=== PATIENT | male | born 1950 | race Caucasian/White ===

== ENCOUNTER 2016-10-14 11:16 | Day surgery (SDC) | payer MEDICAID ==
[2016-04-13 10:54] VITALS: BMI 27.3
[2016-10-14] MEDS: Lactated Ringer's 1,000 ML IV ONE (13:05)
[2016-10-14] MEDS ORDERED: Sodium Chloride 0.9% 1,000 ML IV ONE ×2 (13:05→13:31)
[2016-10-14] MEDS ORDERED: Ciprofloxacin 400mg/200ml D5W 400 MG/200 ML BAG IVPB ONE (13:07)
[2016-10-14] MEDS ORDERED: Midazolam 2 MG/2 ML VIAL ONE ×2 (13:12→13:13)
[2016-10-14] MEDS ORDERED: Propofol 10 mg/ml Inj (20 ML) ONE (13:12)
[2016-10-14] MEDS ORDERED: HYDROmorphone 0.5 mg/0.5 ml ISec IVP PRN (13:27)
[2016-10-14 15:12] VITALS: BP 140/69; PULSE 65; RESP 16; TEMP 97.5; O2SAT 97
--- NOTE | 2016-10-14 18:29 | OP ---
PROCEDURE DATE: 10/14/2016 PREOPERATIVE DIAGNOSES: Frequency and nocturia. POSTOPERATIVE DIAGNOSES: Large prostate causing obstruction with trabeculation. PROCEDURE: Cystoscopy and dilatation. DESCRIPTION OF THE PROCEDURE: While the patient in lithotomy position, genitalia prepped and draped in sterile fashion. The patient given Cipro 400 IV piggyback. The patient identified and anesthesia started. Cystoscopy revealed urethra normal, bulbous urethra mild stricture, this is dilated. The prostate itself showed inflammation on the right side and floor elevated and the prostate itself caus ing obstruction of the prostatic urethra. The bladder itself trabeculated with a small ____ all arou nd the posterior and the lateral wall. After inspecting the rest of the bladder, the prostate again inspected, revealed elevation of the bladder neck and the tissue causing obstruction and that is the reason for his frequency. After removing the scope, urethra dilated and patient transferred to the r ecovery room in stable condition. Neena Hood MD cc: 43 TT: 10/14/2016 18:28:10 sn
== END 2016-10-14 15:13 | disposition home or self-care (01) ==
LOC: C.SDS 11:16
PROVIDERS: ATTEND Specialist
DX: N40.1 Benign prostatic hyperplasia with lower urinary tract symptoms (principal); R35.0 Frequency of micturition; N13.8 Other obstructive and reflux uropathy; N35.8 Other urethral stricture
CPT/HCPCS: 52281; J0744; J7040

== ENCOUNTER 2016-12-23 17:03 | Emergency (ER) | payer MEDICARE, MEDICAID ==
[2016-12-23 17:03] VITALS: BMI 27.3
--- NOTE | 2016-12-23 17:56 | C.PDOC ---
History Of Present Illness 66 Y/O MALE C/O HEADACHE, VOMITING X 2 DAYS. PATIENT REPORTS HE GETS MIGRAINES EVERY WEEK AND THAT CURRENT HEADACHE IS WORSE THAN USUAL. NO RELIEF AFTER TYLENOL AT 0900 TODAY. DENIES FEVER, CHILLS, VISUAL CHANGES, OR OTHER ASSOCIATED SYMPTOMS. Time Seen by Provider: 12/23/16 17:46 Chief Complaint (Nursing): Headache History Per: Patient History/Exam Limitations: no limitations Onset/Duration Of Symptoms: Days Current Symptoms Are (Timing): Still Present Preceeding Symptoms: denies: Visual Disturbances Associated Symptoms: Nausea, Vomiting. denies: Blurred Vision, Extremity Weakness Recent travel outside of the [place]: No Past Medical History Reviewed: Historical Data, Nursing Documentation, Vital Signs Vital Signs: Last Vital Signs Temp 98.1 F 12/23/16 17:15 Pulse 64 12/23/16 17:15 Resp 20 12/23/16 17:15 BP 178/90 H 12/23/16 17:15 Pulse Ox 98 12/23/16 18:16 - Medical History PMH: HTN, Kidney Stones, Chronic Kidney Disease Family History: States: Unknown Family Hx - Social History Hx Alcohol Use: Yes Hx Substance Use: No - Immunization History Hx Tetanus Toxoid Vaccination: No Hx Influenza Vaccination: Yes (6 months ago) Hx Pneumococcal Vaccination: No Review Of Systems Except As Marked, All Systems Reviewed And Found Negative. Constitutional: Negative for: Fever, Chills Cardiovascular: Negative for: Chest Pain, Palpitations Respiratory: Negative for: Cough, Shortness of Breath, Wheezing Gastrointestinal: Positive for: Vomiting. Negative for: Nausea Skin: Negative for: Rash Neurological: Positive for: Headache. Negative for: Dizziness Physical Exam - Physical Exam Appears: Non-toxic, No Acute Distress Skin: Normal Color, Warm, Dry Head: Atraumatic, Normacephalic Eye(s): bilateral: Normal Inspection, PERRL, EOMI Ear(s): Bilateral: Normal Nose: Normal Oral Mucosa: Moist Neck: Normal ROM, No Midline Cervical Tenderness, No Paracervical Tenderness, Supple Chest: Symmetrical Cardiovascular: Rhythm Regular Respiratory: Normal Breath Sounds, No Rales, No Rhonchi, No Wheezing Gastrointestinal/Abdominal: Soft, No Tenderness Back: Normal Inspection, No Vertebral Tenderness, No Paraspinal Tenderness Extremity: Normal ROM, Capillary Refill (< 2 SEC.) Neurological/Psych: Oriented x3, Normal Speech, Normal Cognition ED Course And Treatment - Laboratory Results Result Diagrams: 12/23/16 18:10 12/23/16 18:10 O2 Sat by Pulse Oximetry: 98 (RA) Pulse Ox Interpretation: Normal Progress - Re-Evaluation Re-evaluation Note: 12/23/16 17:55 CT HEAD, EKG, LABS ORDERED. MORPHINE, TYLENOL, REGLAN GIVEN. 12/23/16 19:[address] RODRIGUEZ CT, DISPO - Data Reviewed Data Reviewed: Lab, Diagnostic imaging Disposition - Disposition Disposition Time: 19:00 Condition: STABLE Forms: [employer] (Amharic) - Clinical Impression Clinical Impression: Migraine - Scribe Statement The provider has reviewed the documentation as recorded by the Scribe SM All medical record entries made by the Scribe were at my direction and personally dictated by me. I have reviewed the chart and agree that the record accurately reflects my personal performance of the history, physical exam, medical decision making, and the department course for this patient. I have also personally directed, reviewed, and agree with the discharge instructions and disposition.
[2016-12-23 18:15] LABS: BASO % 0.3 % (0.0-2.0); EOS # 0.2 K/uL (0.0-0.7); EOS % 3.3 % (0.0-4.0); HEMATOCRIT 42.8 % (35.0-51.0); LYMPH # 0.3 K/uL (1.0-4.3); LYMPH % 6.8 % (20.0-40.0); MEAN CELL VOLUME 80.7 fL (80.0-94.0); MEAN CORPUSCULAR HGB CONC 33.4 g/dL (33.0-37.0); MEAN PLATELET VOLUME 7.4 fL (7.2-11.7); MONO # 0.4 K/uL (0.0-0.8); MONO % 9.1 % (0.0-10.0); PLATELET COUNT 164 K/uL (130-400); RED CELL DISTRIBUTION WIDTH 13.6 % (11.5-14.5); WHITE BLOOD COUNT 4.6 K/uL (4.8-10.8)
[2016-12-23 18:22] LABS: CHLORIDE 98 mmol/L (98-107); POTASSIUM 3.7 mmol/L (3.6-5.2); SODIUM 135 mmol/L (132-148)
[2016-12-23 18:25] LABS: BLOOD UREA NITROGEN 16 mg/dL (9-20); CARBON DIOXIDE 27 mmol/L (22-30); GFR AFRICAN-AMERICAN > 60
[2016-12-23 18:26] LABS: CALCIUM 9.1 mg/dl (8.6-10.4); GLUCOSE,RANDOM 121 mg/dL (75-110)
--- NOTE | 2016-12-23 18:57 | CT ---
PROCEDURE: CT HEAD WITHOUT CONTRAST. HISTORY: Headache COMPARISON: Noncontrast head CT performed 04/13/12 TECHNIQUE: Axial computed tomography images were obtained through the head/brain without intravenous contrast. Radiation dose: Total exam DLP = 874.18 mGy-cm. This CT exam was performed using one or more of the following dose reduction techniques: Automated exposure control, adjustment of the mA and/or kV according to patient size, and/or use of iterative reconstruction technique. FINDINGS: HEMORRHAGE: No intracranial hemorrhage. BRAIN: No mass effect or edema. Intracranial atherosclerotic calcifications. The agosto-white matter differentiation appears intact. Please note that MRI with diffusion imaging is more sensitive in the detection of acute ischemic event. VENTRICLES: No hydrocephalus. CALVARIUM: Unremarkable. PARANASAL SINUSES: Extensive opacification of the ethmoid air cells. Mucosal thickening of the right frontal sinus. Mild mucosal thickening of the bilateral sphenoid sinuses. MASTOID AIR CELLS: Unremarkable as visualized. No inflammatory changes. OTHER FINDINGS: None. IMPRESSION: No acute intracranial pathology identified. Extensive opacification involving the ethmoid air cells. Mucosal thickening of the right frontal and bilateral sphenoid sinuses. Correlate clinically for sinusitis.
[2016-12-23 19:30] LABS: EOSINOPHIL 1 % (0-4); NEUTROPHIL 88 % (50-75); TOTAL CELLS COUNTED 100
[2016-12-23 20:02] VITALS: RESP 18
[2016-12-23 21:09] VITALS: BP 141/87; PULSE 62; TEMP 98.4; O2SAT 99
--- NOTE | 2016-12-26 18:09 | CARD ---
APPROVED REPORT EKG Measurement Heart [id number] <Conclusion> Normal sinus rhythm Moderate voltage criteria for LVH, may be normal variant Borderline ECG
== END 2016-12-23 21:10 | disposition home or self-care (01) ==
LOC: C.ER 17:03
DX: G43.909 Migraine, unspecified, not intractable, without status migrainosus (principal)
CPT/HCPCS: 70450; 80048; 85025; 96374; 96375; 99285; J2270; J2765

== ENCOUNTER 2018-03-17 09:50 | Emergency (ER) | payer MEDICARE, MEDICAID ==
[2018-03-17 09:50] VITALS: BMI 27.3
[2018-03-17 10:24] VITALS: RESP 18
--- NOTE | 2018-03-17 11:00 | C.PDOC ---
History Of Present Illness 67 y/o male with PMH of kidney stones presents to the ED c/o left sided lower back pain that radiates down his left leg x 3 days. Describes pain as sharp and constant, with intermittent radiation down the back of his left buttock and leg. Pain worse with long periods of sitting. Pt has not taken any medication for pain. Denies trauma, fever, chills, numbness, paresthesias, weakness. Chief Complaint (Nursing): Back Pain Past Medical History Reviewed: Historical Data, Nursing Documentation, Vital Signs Vital Signs: Last Vital Signs Temp 97.4 F L 03/17/18 10:23 Pulse 60 03/17/18 10:23 Resp 18 03/17/18 10:23 BP 135/74 03/17/18 10:23 Pulse Ox 98 03/17/18 10:23 - Medical History PMH: HTN, Kidney Stones, Chronic Kidney Disease Family History: States: Unknown Family Hx - Social History Hx Alcohol Use: No Hx Substance Use: No - Immunization History Hx Tetanus Toxoid Vaccination: No Hx Influenza Vaccination: No Hx Pneumococcal Vaccination: No Physical Exam - Physical Exam Appears: Well, No Acute Distress Skin: Normal Color, Warm, Dry Head: Atraumatic, Normacephalic, No Tenderness Eye(s): bilateral: Normal Inspection, PERRL, EOMI Nose: Normal Throat: Normal Neck: Normal, Normal ROM, No Paracervical Tenderness Lymphatic: Normal Exam Cardiovascular: Rhythm Regular Respiratory: Normal Breath Sounds Gastrointestinal/Abdominal: Normal Exam, Bowel Sounds (normoactive), Soft, No Tenderness, No Other (pulsation) Back: Normal Inspection, No CVA Tenderness, No Vertebral Tenderness, Decreased ROM (secondary to pain, at lumbar spine and left hip), No Muscle Spasm, Paraspinal Tenderness (left lumbar paraspinal), Straight Leg Raising (positive on left) Extremity: Normal ROM, No Tenderness, No Deformity, No Swelling Extremity: Left: Other (ROM decreased at left hip secondary to back pain), Right: Normal ROM, Bilateral: Atraumatic, No Pedal Edema, Normal Color And Temperature Pulses: Left Dorsalis Pedis: Normal, Right Dorsalis Pedis: Normal Neurological/Psych: Oriented x3, Normal Speech, Normal Cognition, Normal Cranial Nerves, Normal Motor, Normal Sensation Gait: Steady ED Course And Treatment O2 Sat by Pulse Oximetry: 98 Medical Decision Making Medical Decision Making: Initial Plan: * UA * Valium PO * Toradol IM * Lidoderm Patch UA: normal; negative for infection or blood Pt reports decreased pain after medication. GERARDO Pedro saw and evaluated pt at bedside, agrees with plan of care and disposition. Plan of care discussed with patient, and strict instructions given regarding prescriptions given, importance of follow up, and signs to return to Emergency Department, to include worsening pain, urinary symptoms, abdominal pain, or any other new/worsening symptoms. Patient verbalizes understanding of discussion. Patient A&Ox3, ambulating with steady gait, stable for discharge home. Impression: Sciatic Back pain Plan: * Naproxen * Flexeril * Ortho followup * Lifestyle modifications * Followup with primary doctor/clinic within 2 days * Return to ER for new/worsening symptoms Disposition - Disposition Referrals: [facility] [Outside] Edvin Goff III, MD [Staff Provider] - Disposition: HOME/ ROUTINE Disposition Time: 12:20 Condition: IMPROVED Additional Instructions: Aumentar los fluidos [place] de calentamiento, estiramiento [place] naproxeno cada 12 horas segn sea necesario para el dolor. [place] flexeril cada 8 horas segn sea necesario para el espasmo muscular. Seguimiento con primaria o clnica dentro de 2 duenas. Volver a la leoncio de emergencias para los sntomas nuevos / que empeoran Prescriptions: Cyclobenzaprine [Flexeril] 5 mg PO Q8H PRN #15 tab PRN Reason: Muscle Spasm Naproxen [Naprosyn] 500 mg PO Q12H PRN #30 tablet PRN Reason: Pain, Moderate (4-7) Instructions: Low Back Pain in Adults, Sciatica Exercises Forms: Gen Discharge Inst Icelandic, [employer] (Icelandic), Work Excuse Print Language: ROMANIAN - Clinical Impression Clinical Impression: Low back pain, Sciatica
[2018-03-17 11:33] LABS: SQUAMOUS EPITHIAL 3 /hpf (0-5); URINE BILIRUBIN NEGATIVE (NEGATIVE); URINE BLOOD NEGATIVE (NEGATIVE); URINE CLARITY Hazy (Clear); URINE COLOR Yellow (YELLOW); URINE GLUCOSE (UA) NORMAL (Normal); URINE LEUKOCYTE ESTERASE NEG Leu/uL (Negative); URINE PROTEIN NEGATIVE (NEGATIVE); URINE UROBILINOGEN NORMAL mg/dL (0.2-1.0)
[2018-03-17 12:19] VITALS: BP 140/66; PULSE 48; TEMP 97.7
[2018-03-17] MEDS ORDERED: Lidocaine 5% Patch TD STA (12:23)
[2018-03-17] MEDS ORDERED: Lidocaine 5% Patch TD ONE (12:31)
[2018-03-18 10:06] VITALS: O2SAT 98
== END 2018-03-17 12:32 | disposition home or self-care (01) ==
LOC: C.ER 09:50
DX: M54.40 Lumbago with sciatica, unspecified side (principal); I12.9 Hypertensive chronic kidney disease with stage 1 through stage 4 chronic kidney disease, or unspecified chronic kidney disease; N18.9 Chronic kidney disease, unspecified; Z87.442 Personal history of urinary calculi
CPT/HCPCS: 81001; 96372; 99284; J1885

== ENCOUNTER 2018-09-03 08:48 | Outpatient (CLI) | payer MEDICARE, MEDICAID | END 2018-09-03 08:49 | disposition home or self-care (01) | LOC: C.LAB 08:48 | DX: N41.1 Chronic prostatitis (principal) ==

== ENCOUNTER 2018-09-10 09:19 | Outpatient (CLI) | payer MEDICARE, MEDICAID | END 2018-09-10 09:20 | disposition home or self-care (01) | LOC: C.RADH 09:19 | DX: R30.0 Dysuria (principal); N40.1 Benign prostatic hyperplasia with lower urinary tract symptoms; R35.1 Nocturia ==

== ENCOUNTER 2018-09-14 08:53 | Outpatient (CLI) | payer MEDICARE, MEDICAID | END 2018-09-14 08:54 | disposition home or self-care (01) | LOC: C.CTH 08:53 | DX: R10.30 Lower abdominal pain, unspecified (principal) ==